=== PATIENT | male | born 1950 | race Caucasian/White ===

== ENCOUNTER 2023-07-17 15:04 | Oncology outpatient (recurring) (ONCR) | payer OTHER, SELFPAY | END 2023-08-01 23:59 | disposition home or self-care (01) | PROVIDERS: Visit Provider Internal Medicine Medical Oncology | DX: C91.10 Chronic lymphocytic leukemia of B-cell type not having achieved remission (principal); Z79.899 Other long term (current) drug therapy | CPT/HCPCS: 99204 ==

== ENCOUNTER → 2023-08-21 13:21 | Outpatient (BNVA) | payer OTHER, SELFPAY | PROVIDERS: Referring Provider Emergency Medicine Emergency Medical Services; Visit Provider Internal Medicine | DX: R07.9 Chest pain, unspecified (principal); I25.10 Atherosclerotic heart disease of native coronary artery without angina pectoris; R94.31 Abnormal electrocardiogram [ECG] [EKG] | CPT/HCPCS: 93005; 99204 ==

== ENCOUNTER 2023-09-05 10:43 | Outpatient (CLI) | payer OTHER, SELFPAY ==
--- NOTE | 2023-09-05 11:00 | USCV_ITS ---
Lyndon Jones Age: 73 Gender: M : 1950 Exam Date: 09/05/2023 10:59 Ordering Phys: Dion Mercado M.D ([email or web address]) Technologist: GRUPO [place] [facility] [place]: SHORTNESS OF BREATH/CHEST PAIN BP: 116 / 68 HR: 74 Rhythm: Sinus Technical Quality: Adequate MEASUREMENTS (Male / Female) Normal Values 2D ECHO LVOT Diameter 2.0 cm LV Ejection Fraction MOD 2C 60.3 % LV Ejection Fraction 2C AL 65.2 % LA Diameter 3.9 cm LA Width 4.4 cm LA Height 5.1 cm RA Width 3.8 cm RA Height 5.0 cm Aorta at Sinotubular Diameter 2.8 cm IVC Diameter 1.6 cm M-MODE Aortic Annulus Diameter 3.3 cm LA Ao Ratio MM 1.1 MV E Point Septal Separation 0.6 cm DOPPLER AV Peak Velocity 132.0 cm/s LVOT Peak Velocity 119.0 cm/s AV Area Cont Eq vti 3.8 cm squared AV Area Cont Eq pk 3.0 cm squared MV Peak Velocity 104.0 cm/s MV Area PHT 3.2 cm squared Mitral E to A Ratio 0.9 MV E' Velocity 46.0 cm/s Mitral E to MV E' Ratio 8.8 Mitral E to LV E' Lateral Ratio 7.2 Mitral E to LV E' Septal Ratio 11.2 TR Peak Velocity 111.4 cm/s TR Peak Gradient 5.0 mmHg TR Mean Velocity 97.8 cm/s TR Mean Gradient 3.9 mmHg TR Velocity Time Integral 33.4 cm TV Peak E Velocity 59.0 cm/s Right Atrial Pressure 3.0 mmHg Pulmonary Artery Systolic Pressu 8.0 mmHg PV Peak Velocity 147.0 cm/s RV Acceleration Time 0.1 s RV Ejection Time 0.3 s RV AcT/ET 0.5 FINDINGS Left Ventricle Left ventricle is normal in size. LV systolic function is normal with EF of 55 to 60%. No regional wall motion abnormalities are seen. Grade 1 disatolic dysfunction Right Ventricle Normal in size and function Right Atrium Normal in size Left Atrium Dilated Mitral Valve Structurally normal mitral valve. Trace mitral regurgitation. Aortic Valve Structurally normal aortic valve. No significant stenosis or regurgitation. Tricuspid Valve Mild tricuspid regurgitation. Insufficient TR jet to calculate RVSP Pulmonic Valve Trace pulmonic regurgitation Trace pulmonic regurgitation Trace pulmonic regurgitation Pericardium Normal Aorta Normal in size IVC Appears to be normal CONCLUSIONS LV systolic function is normal with EF of 55 to 60% Grade 1 diastolic dysfunction. Trace mitral regurgitation Mild tricuspid regurgitation Trace pulmonic regurgitation No comparison studies are available Dion Mercado MD (Electronically Signed) Final Date: 07 September 2023 16:10 S
== END 2023-09-05 10:44 | disposition home or self-care (01) ==
LOC: RAD 10:43
PROVIDERS: PCP Family Medicine; Visit Provider Internal Medicine
DX: R07.9 Chest pain, unspecified (principal); R06.02 Shortness of breath; I07.1 Rheumatic tricuspid insufficiency
CPT/HCPCS: 93306

== ENCOUNTER → 2024-02-20 11:39 | Outpatient (BNVA) | payer OTHER, SELFPAY | PROVIDERS: PCP Family Medicine; Visit Provider Internal Medicine Cardiovascular Disease | DX: I25.10 Atherosclerotic heart disease of native coronary artery without angina pectoris (principal); E78.5 Hyperlipidemia, unspecified | CPT/HCPCS: 99213 ==

== ENCOUNTER 2024-09-09 08:27 | Oncology outpatient (recurring) (ONCR) | payer OTHER, SELFPAY ==
[2024-09-09 10:09] LABS: Basophils # 0.1 10^3/uL (0.0-0.1); Basophils % 0.2 %; Eosinophils # 0.2 10^3/uL (0.0-0.8); Eosinophils % 0.3 %; Hematocrit 41.2 % (37-53); Lymphocytes # 61.1 10^3/uL (0.8-4.8); Lymphocytes % 87.7 %; Mean Corpuscular HGB Conc 33.7 g/dL (30-55); Mean Corpuscular Volume 94.9 fl (82-101); Mean Platelet Volume 9.6 fL (7.4-10.4); Monocytes # 4.9 10^3/uL (0.2-0.9); Neutrophils # 3.29 10^3/uL (1.8-7.7); Neutrophils % 4.7 %; Nucleated Red Blood Cells % 0 %; Platelet Count 122 10^3/cmm (157-399); Red Blood Count 4.34 10^6/uL (3.85-5.65)
[2024-09-09 10:18] LABS: Erythrocyte Sedimentation Rate 4 mm/hr (0-10)
[2024-09-09 10:29] LABS: Alanine Aminotransferase 18 U/L (0-41); Albumin Level 4.5 g/dL (3.5-5.2); Alkaline Phosphatase 107 U/L (40-130); Anion Gap 15.5 (5-19); Aspartate Amino Transferase 22 U/L (0-40); Blood Urea Nitrogen 18 mg/dL (8-23); Calcium 9.6 mg/dL (8.5-10.5); Carbon Dioxide 24 mmol/L (22-29); Chloride 103 mmol/L (98-107); Creatinine Clr Calc Pharmacy 111.1073; Globulin 2.3 g/dL (1.3-4.6); Glucose 123 mg/dL (65-115); Lactate Dehydrogenase 161 U/L (135-225); Osmolality Calculated 289 mOsm/kg (285-295); Phosphorus 3.2 mg/dL (2.5-4.5); Potassium 4.5 mmol/L (3.5-5.1); Sodium 138 mmol/L (136-145); Total Bilirubin 0.9 mg/dL (0.15-1.2); Total Protein 6.8 g/dL (6.6-8.7); Uric Acid 5.5 mg/dL (3.4-7.0)
[2024-09-09 10:43] LABS: Immunoglobulin IGG 604 mg/dL (700-1600); Immunoglobulin IGM 42 mg/dL (40-230)
[2024-09-09 10:47] LABS: Immunoglobulin IGA < 50 mg/dL (70-400)
[2024-09-09 10:55] LABS: Slide Review Slide Review Perform
[2024-09-09 11:36] LABS: Reticulocyte % 1.7 % (0.5-2.0)
[2024-09-10 08:49] LABS: PROTEIN, TOTAL 6.6 g/dL (6.1-8.1)
[2024-09-10 13:44] LABS: Leukemia Profile (BBPL) See Report
[2024-09-11 11:54] LABS: ABNORMAL PROTEIN BAND 1 0.1 g/dL (NONE DETECTED); ALBUMIN 4.3 g/dL (3.8-4.8); ALPHA 1 GLOBULIN 0.3 g/dL (0.2-0.3); ALPHA 2 GLOBULIN 0.8 g/dL (0.5-0.9); BETA 1 GLOBULIN 0.4 g/dL (0.4-0.6); BETA 2 GLOBULIN 0.3 g/dL (0.2-0.5); GAMMA GLOBULIN 0.6 g/dL (0.8-1.7)
[2024-09-17 15:10] LABS: CLL Prognostic Panel (BBPL) See Report
== END 2024-10-02 23:59 | disposition home or self-care (01) ==
PROVIDERS: PCP Family Medicine; Visit Provider Internal Medicine
DX: C91.10 Chronic lymphocytic leukemia of B-cell type not having achieved remission (principal); I25.10 Atherosclerotic heart disease of native coronary artery without angina pectoris
CPT/HCPCS: 36415; 80053; 81263; 82232; 82784; 83010; 83615; 84100; 84155; 84165; 84550; 85025; 85045; 85651; 86334; 86880; 88184; 88185; 88264; 88271; 88367; 88374; 99213

== ENCOUNTER 2024-12-09 09:54 | Oncology outpatient (recurring) (ONCR) | payer OTHER, SELFPAY ==
[2024-12-09 10:30] LABS: Hematocrit 40.9 % (37-53); Mean Corpuscular HGB Conc 32.5 g/dL (30-55); Mean Corpuscular Volume 98.3 fl (82-101); Mean Platelet Volume 9.7 fL (7.4-10.4); Platelet Count 132 10^3/cmm (157-399); Red Blood Count 4.16 10^6/uL (3.85-5.65); Red Cell Distribution Width 14.9 % (12.1-15.1)
[2024-12-09 10:34] LABS: Erythrocyte Sedimentation Rate 3 mm/hr (0-10)
[2024-12-09 10:38] LABS: Reticulocyte % 1.7 % (0.5-2.0)
[2024-12-09 10:49] LABS: Alanine Aminotransferase 14 U/L (0-41); Albumin Level 4.5 g/dL (3.5-5.2); Alkaline Phosphatase 118 U/L (40-130); Anion Gap 18.3 (5-19); Aspartate Amino Transferase 19 U/L (0-40); Blood Urea Nitrogen 21 mg/dL (8-23); Calcium 9.3 mg/dL (8.5-10.5); Carbon Dioxide 22 mmol/L (22-29); Chloride 103 mmol/L (98-107); Globulin 2.1 g/dL (1.3-4.6); Glucose 179 mg/dL (65-115); Lactate Dehydrogenase 160 U/L (135-225); Osmolality Calculated 295 mOsm/kg (285-295); Phosphorus 2.3 mg/dL (2.5-4.5); Potassium 4.3 mmol/L (3.5-5.1); Sodium 139 mmol/L (136-145); Total Bilirubin 0.9 mg/dL (0.15-1.2); Total Protein 6.6 g/dL (6.6-8.7); Uric Acid 5.4 mg/dL (3.4-7.0)
[2024-12-09 11:12] LABS: White Blood Count 90.86 10^3/uL (3.29-11.43)
[2024-12-09 11:15] LABS: Slide Review Slide Review Perform
[2024-12-09 11:16] LABS: Absolute Eosinophils 1.8 10^3/cmm (0.0-0.7); Absolute Neutrophil 4.5 10^3/cmm (1.4-6.5); Absolute Segmented Neutrophil 4.5 10/cmm (1.6-7.1); Eosinophils 2 %; Lymphocytes 84 %; Lymphocytes Absolute 84.5 10^3/cmm (1.2-3.4); Platelet Estimate Normal (Normal); Segmented Neutrophils 5 %; Total Cells Counted 100 (0-100)
[2024-12-09 11:18] LABS: Immunoglobulin IGG 579 mg/dL (700-1600); Immunoglobulin IGM 38 mg/dL (40-230)
[2024-12-09 11:20] LABS: Immunoglobulin IGA < 50 mg/dL (70-400)
[2024-12-10 08:06] LABS: PROTEIN, TOTAL 6.5 g/dL (6.1-8.1)
[2024-12-10 20:59] LABS: ABNORMAL PROTEIN BAND 1 0.1 g/dL (NONE DETECTED); ALBUMIN 4.2 g/dL (3.8-4.8); ALPHA 1 GLOBULIN 0.3 g/dL (0.2-0.3); ALPHA 2 GLOBULIN 0.9 g/dL (0.5-0.9); BETA 1 GLOBULIN 0.4 g/dL (0.4-0.6); BETA 2 GLOBULIN 0.3 g/dL (0.2-0.5); GAMMA GLOBULIN 0.5 g/dL (0.8-1.7)
== END 2024-12-30 23:59 | disposition home or self-care (01) ==
PROVIDERS: PCP Family Medicine; Visit Provider Internal Medicine
DX: C91.10 Chronic lymphocytic leukemia of B-cell type not having achieved remission (principal); I25.10 Atherosclerotic heart disease of native coronary artery without angina pectoris; M1A.9XX0 Chronic gout, unspecified, without tophus (tophi); I11.0 Hypertensive heart disease with heart failure; E78.5 Hyperlipidemia, unspecified; G31.89 Other specified degenerative diseases of nervous system; M54.9 Dorsalgia, unspecified; G89.4 Chronic pain syndrome
CPT/HCPCS: 36415; 80053; 82784; 83010; 83615; 84100; 84155; 84165; 84550; 85007; 85025; 85045; 85651; 86334; 86880; 99213

== ENCOUNTER → 2025-01-04 08:27 | Outpatient (BNVA) | payer OTHER, SELFPAY | PROVIDERS: PCP Family Medicine; Referring Provider Dermatology; Visit Provider Nurse Practitioner Family | DX: L23.89 Allergic contact dermatitis due to other agents (principal); L82.1 Other seborrheic keratosis; L81.4 Other melanin hyperpigmentation; Z08 Encounter for follow-up examination after completed treatment for malignant neoplasm; Z85.828 Personal history of other malignant neoplasm of skin; D48.5 Neoplasm of uncertain behavior of skin; L57.0 Actinic keratosis | CPT/HCPCS: 11102; 17000; 69100; 99204 ==

== ENCOUNTER → 2025-01-20 14:41 | Outpatient (BNVA) | payer OTHER, SELFPAY | PROVIDERS: PCP Family Medicine; Visit Provider Dermatology | DX: D04.22 Carcinoma in situ of skin of left ear and external auricular canal (principal); C44.1192 Basal cell carcinoma of skin of left lower eyelid, including canthus; C44.612 Basal cell carcinoma of skin of right upper limb, including shoulder; D48.5 Neoplasm of uncertain behavior of skin | CPT/HCPCS: 11102; 11603; 12034; 99214 ==

== ENCOUNTER 2025-02-10 12:35 | Oncology outpatient (recurring) (ONCR) | payer OTHER, SELFPAY ==
[2025-02-10 13:04] LABS: Reticulocyte % 1.7 % (0.5-2.0)
[2025-02-10 13:22] LABS: Alanine Aminotransferase 12 U/L (0-41); Albumin Level 4.4 g/dL (3.5-5.2); Alkaline Phosphatase 126 U/L (40-130); Anion Gap 14.5 (5-19); Aspartate Amino Transferase 19 U/L (0-40); Blood Urea Nitrogen 15 mg/dL (8-23); Calcium 9.1 mg/dL (8.5-10.5); Carbon Dioxide 22 mmol/L (22-29); Chloride 103 mmol/L (98-107); Globulin 2.1 g/dL (1.3-4.6); Glucose 117 mg/dL (65-115); Lactate Dehydrogenase 181 U/L (135-225); Osmolality Calculated 282 mOsm/kg (285-295); Potassium 4.5 mmol/L (3.5-5.1); Sodium 135 mmol/L (136-145); Total Bilirubin 0.7 mg/dL (0.15-1.2); Total Protein 6.5 g/dL (6.6-8.7); Uric Acid 4.8 mg/dL (3.4-7.0)
[2025-02-10 13:34] LABS: Hematocrit 40.2 % (37-53); Mean Corpuscular HGB Conc 32.8 g/dL (30-55); Mean Corpuscular Hemoglobin 32.2 pg (27-33); Mean Platelet Volume 10.1 fL (7.4-10.4); Platelet Count 132 10^3/cmm (157-399); Red Cell Distribution Width 14.7 % (12.1-15.1)
[2025-02-10 14:13] LABS: White Blood Count 115.31 10^3/uL (3.29-11.43)
[2025-02-10 14:14] LABS: Erythrocyte Sedimentation Rate 3 mm/hr (0-10); Slide Review Slide Review Perform
[2025-02-10 14:16] LABS: Absolute Eosinophils 1.2 10^3/cmm (0.0-0.7); Absolute Segmented Neutrophil 1.2 10/cmm (1.6-7.1); Eosinophils 1 %; Lymphocytes 88 %; Monocytes Absolute 1.2 10^3/cmm (0.1-0.6); Segmented Neutrophils 1 %; Total Cells Counted 100 (0-100)
[2025-02-10 14:17] LABS: Absolute Neutrophil 1.2 10^3/cmm (1.4-6.5); Lymphocytes Absolute 111.9 10^3/cmm (1.2-3.4); Platelet Estimate Normal (Normal); Smudge Cells 2+
[2025-02-10 15:25] LABS: Immunoglobulin IGA < 50 mg/dL (70-400); Immunoglobulin IGG 553 mg/dL (700-1600); Immunoglobulin IGM 26 mg/dL (40-230); Phosphorus 2.5 mg/dL (2.5-4.5)
[2025-02-10 16:33] LABS: Folate Level > 20.0 ng/mL (4.5-32.2)
[2025-02-10 17:10] LABS: Ferritin 120 ng/mL (30-400); Iron 89 ug/dL (59-158); Percent Saturation 31.3 % (20-50); Total Iron Binding Capacity 284 mcg/dl; Unsaturated Iron Binding 195 ug/dL (112-347)
[2025-02-10 17:24] LABS: Vitamin B12 1495 pg/mL (232-1245)
[2025-02-11 09:01] LABS: PROTEIN, TOTAL 6.5 g/dL (6.1-8.1)
[2025-02-12 19:55] LABS: ABNORMAL PROTEIN BAND 1 0.1 g/dL (NONE DETECTED); ALBUMIN 4.3 g/dL (3.8-4.8); ALPHA 1 GLOBULIN 0.3 g/dL (0.2-0.3); ALPHA 2 GLOBULIN 0.9 g/dL (0.5-0.9); BETA 1 GLOBULIN 0.4 g/dL (0.4-0.6); BETA 2 GLOBULIN 0.3 g/dL (0.2-0.5); GAMMA GLOBULIN 0.5 g/dL (0.8-1.7)
[2025-02-13 21:29] LABS: Immunofixation Serum Normal pattern.
== END 2025-03-01 23:59 | disposition home or self-care (01) ==
PROVIDERS: PCP Family Medicine; Visit Provider Internal Medicine
DX: C91.10 Chronic lymphocytic leukemia of B-cell type not having achieved remission (principal); I25.10 Atherosclerotic heart disease of native coronary artery without angina pectoris; M1A.9XX0 Chronic gout, unspecified, without tophus (tophi); I11.0 Hypertensive heart disease with heart failure; E78.5 Hyperlipidemia, unspecified; G31.89 Other specified degenerative diseases of nervous system; M54.9 Dorsalgia, unspecified; G89.4 Chronic pain syndrome; R03.0 Elevated blood-pressure reading, without diagnosis of hypertension
CPT/HCPCS: 36415; 80053; 82607; 82728; 82746; 82784; 83010; 83540; 83550; 83615; 84100; 84155; 84165; 84550; 85007; 85025; 85045; 85651; 86334; 86880; 99213

== ENCOUNTER → 2025-03-10 10:39 | Outpatient (BNVA) | payer OTHER, SELFPAY | PROVIDERS: PCP Family Medicine; Visit Provider Nurse Practitioner Family | DX: L82.1 Other seborrheic keratosis (principal); L81.4 Other melanin hyperpigmentation; D18.01 Hemangioma of skin and subcutaneous tissue; Z08 Encounter for follow-up examination after completed treatment for malignant neoplasm; Z85.828 Personal history of other malignant neoplasm of skin; D48.5 Neoplasm of uncertain behavior of skin | CPT/HCPCS: 11102; 99213 ==

== ENCOUNTER 2025-03-31 12:15 | Oncology outpatient (recurring) (ONCR) | payer OTHER, SELFPAY ==
[2025-03-11 08:45] LABS: Hematocrit 39.1 % (37-53); Hemoglobin 12.20 g/dL (11.27-16.99); Mean Corpuscular HGB Conc 31.2 g/dL (30-55); Mean Corpuscular Hemoglobin 30.8 pg (27-33); Mean Corpuscular Volume 98.7 fl (82-101); Nucleated Red Blood Cells % 0 %; Platelet Count 283 10^3/cmm (157-399); Red Blood Count 3.96 10^6/uL (3.85-5.65)
[2025-03-11 09:04] LABS: Alanine Aminotransferase 23 U/L (0-41); Albumin Level 3.9 g/dL (3.5-5.2); Alkaline Phosphatase 119 U/L (40-130); Anion Gap 16.0 (5-19); Aspartate Amino Transferase 27 U/L (0-40); Blood Urea Nitrogen 14 mg/dL (8-23); Calcium 9.2 mg/dL (8.5-10.5); Carbon Dioxide 25 mmol/L (22-29); Chloride 101 mmol/L (98-107); Creatinine Clr Calc Pharmacy 92.1696; Globulin 2.7 g/dL (1.3-4.6); Glucose 100 mg/dL (65-115); Magnesium 2.5 mg/dL (1.7-2.3); Osmolality Calculated 285 mOsm/kg (285-295); Potassium 5.0 mmol/L (3.5-5.1); Sodium 137 mmol/L (136-145); Total Protein 6.6 g/dL (6.6-8.7); Uric Acid 5.0 mg/dL (3.4-7.0)
[2025-03-11 09:08] LABS: White Blood Count 134.55 10^3/uL (3.29-11.43)
[2025-03-11 09:09] LABS: Slide Review Slide Review Perform
[2025-03-16 12:01] LABS: Hematocrit 40.2 % (37-53); Hemoglobin 12.90 g/dL (11.27-16.99); Mean Corpuscular HGB Conc 32.1 g/dL (30-55); Mean Corpuscular Hemoglobin 31.9 pg (27-33); Mean Corpuscular Volume 99.5 fl (82-101); Nucleated Red Blood Cells % 0 %; Platelet Count 180 10^3/cmm (157-399); Red Blood Count 4.04 10^6/uL (3.85-5.65)
[2025-03-16 12:18] LABS: White Blood Count 122.79 10^3/uL (3.29-11.43)
[2025-03-16 12:19] LABS: Slide Review Slide Review Perform
[2025-03-16 12:22] LABS: Alanine Aminotransferase 18 U/L (0-41); Albumin Level 4.1 g/dL (3.5-5.2); Alkaline Phosphatase 119 U/L (40-130); Aspartate Amino Transferase 25 U/L (0-40); Blood Urea Nitrogen 11 mg/dL (8-23); Calcium 9.3 mg/dL (8.5-10.5); Carbon Dioxide 23 mmol/L (22-29); Chloride 101 mmol/L (98-107); Creatinine Clr Calc Pharmacy 92.3518; Globulin 2.5 g/dL (1.3-4.6); Glucose 94 mg/dL (65-115); Lipase 5 U/L (13-60); Magnesium 2.4 mg/dL (1.7-2.3); Osmolality Calculated 281 mOsm/kg (285-295); Sodium 136 mmol/L (136-145); Total Protein 6.6 g/dL (6.6-8.7); Uric Acid 5.0 mg/dL (3.4-7.0)
[2025-03-16 12:24] LABS: Anion Gap 17.3 (5-19); Potassium 5.3 mmol/L (3.5-5.1)
[2025-03-16 14:50] LABS: KAPPA LIGHT CHAIN, FREE, SERUM 11.8 mg/L (3.3-19.4); KAPPA/LAMBDA LIGHT CHAINS FREE 0.23 (0.26-1.65); LAMBDA LIGHT CHAIN, FREE, SERU 52.4 mg/L (5.7-26.3)
[2025-03-24 09:43] LABS: Hematocrit 37.9 % (37-53); Hemoglobin 11.70 g/dL (11.27-16.99); Mean Corpuscular HGB Conc 30.9 g/dL (30-55); Mean Corpuscular Hemoglobin 31.0 pg (27-33); Mean Corpuscular Volume 100.5 fl (82-101); Nucleated Red Blood Cells % 0 %; Platelet Count 95 10^3/cmm (157-399); Red Blood Count 3.77 10^6/uL (3.85-5.65)
[2025-03-24 09:55] LABS: Alanine Aminotransferase 10 U/L (0-41); Albumin Level 4.1 g/dL (3.5-5.2); Alkaline Phosphatase 115 U/L (40-130); Anion Gap 17.5 (5-19); Aspartate Amino Transferase 16 U/L (0-40); Blood Urea Nitrogen 12 mg/dL (8-23); Calcium 9.4 mg/dL (8.5-10.5); Carbon Dioxide 24 mmol/L (22-29); Chloride 102 mmol/L (98-107); Creatinine Clr Calc Pharmacy 92.3518; Globulin 2.3 g/dL (1.3-4.6); Glucose 103 mg/dL (65-115); Lipase 7 U/L (13-60); Magnesium 2.2 mg/dL (1.7-2.3); Osmolality Calculated 288 mOsm/kg (285-295); Potassium 4.5 mmol/L (3.5-5.1); Sodium 139 mmol/L (136-145); Total Protein 6.4 g/dL (6.6-8.7); Uric Acid 4.3 mg/dL (3.4-7.0)
[2025-03-24 10:25] LABS: Slide Review Slide Review Perform
[2025-03-24 10:28] LABS: White Blood Count 130.32 10^3/uL (3.29-11.43)
[2025-03-31 12:02] LABS: Hematocrit 39.1 % (37-53); Hemoglobin 12.10 g/dL (11.27-16.99); Mean Corpuscular HGB Conc 30.9 g/dL (30-55); Mean Corpuscular Hemoglobin 31.9 pg (27-33); Mean Corpuscular Volume 103.2 fl (82-101); Nucleated Red Blood Cells % 0 %; Platelet Count 118 10^3/cmm (157-399); Red Blood Count 3.79 10^6/uL (3.85-5.65)
[2025-03-31 12:23] LABS: Alanine Aminotransferase 10 U/L (0-41); Albumin Level 4.2 g/dL (3.5-5.2); Alkaline Phosphatase 122 U/L (40-130); Anion Gap 16.5 (5-19); Aspartate Amino Transferase 16 U/L (0-40); Blood Urea Nitrogen 13 mg/dL (8-23); Calcium 9.3 mg/dL (8.5-10.5); Carbon Dioxide 24 mmol/L (22-29); Chloride 103 mmol/L (98-107); Creatinine Clr Calc Pharmacy 92.1696; Globulin 2.4 g/dL (1.3-4.6); Glucose 165 mg/dL (65-115); Osmolality Calculated 292 mOsm/kg (285-295); Potassium 4.5 mmol/L (3.5-5.1); Sodium 139 mmol/L (136-145); Total Protein 6.6 g/dL (6.6-8.7); Uric Acid 4.4 mg/dL (3.4-7.0)
[2025-03-31 12:49] LABS: White Blood Count 159.14 10^3/uL (3.29-11.43)
[2025-03-31 12:50] LABS: Slide Review Slide Review Perform
== END 2025-04-01 23:59 | disposition home or self-care (01) ==
PROVIDERS: Nurse Practitioner; PCP Family Medicine; Visit Provider Internal Medicine Medical Oncology
DX: Z53.9 Procedure and treatment not carried out, unspecified reason; C91.10 Chronic lymphocytic leukemia of B-cell type not having achieved remission; I25.10 Atherosclerotic heart disease of native coronary artery without angina pectoris; Z79.899 Other long term (current) drug therapy; L29.9 Pruritus, unspecified
CPT/HCPCS: 36415; 80053; 82232; 82784; 83010; 83615; 83690; 83735; 83883; 84100; 84550; 85025; 99213; 99214; 99215

== ENCOUNTER → 2025-04-02 09:18 | Outpatient (BNVA) | payer OTHER, SELFPAY | PROVIDERS: PCP Family Medicine; Visit Provider Dermatology | DX: C44.92 Squamous cell carcinoma of skin, unspecified (principal); D04.22 Carcinoma in situ of skin of left ear and external auricular canal; C44.1192 Basal cell carcinoma of skin of left lower eyelid, including canthus; L82.1 Other seborrheic keratosis; L81.4 Other melanin hyperpigmentation; L81.7 Pigmented purpuric dermatosis; Z08 Encounter for follow-up examination after completed treatment for malignant neoplasm; Z85.828 Personal history of other malignant neoplasm of skin; C44.41 Basal cell carcinoma of skin of scalp and neck; L30.9 Dermatitis, unspecified; L57.0 Actinic keratosis | CPT/HCPCS: 11102; 17000; 17272; 99214 ==

== ENCOUNTER 2025-04-29 08:19 | Oncology outpatient (recurring) (ONCR) | payer OTHER, SELFPAY ==
[2025-04-06 10:52] LABS: Hematocrit 38.1 % (37-53); Hemoglobin 11.90 g/dL (11.27-16.99); Mean Corpuscular HGB Conc 31.2 g/dL (30-55); Mean Corpuscular Hemoglobin 31.6 pg (27-33); Mean Corpuscular Volume 101.1 fl (82-101); Nucleated Red Blood Cells % 0 %; Platelet Count 172 10^3/cmm (157-399); Red Blood Count 3.77 10^6/uL (3.85-5.65)
[2025-04-06 11:06] LABS: Alanine Aminotransferase 8 U/L (0-41); Albumin Level 4.1 g/dL (3.5-5.2); Alkaline Phosphatase 120 U/L (40-130); Anion Gap 15.1 (5-19); Aspartate Amino Transferase 17 U/L (0-40); Blood Urea Nitrogen 11 mg/dL (8-23); Calcium 9.4 mg/dL (8.5-10.5); Carbon Dioxide 24 mmol/L (22-29); Chloride 104 mmol/L (98-107); Globulin 2.6 g/dL (1.3-4.6); Glucose 124 mg/dL (65-115); Osmolality Calculated 289 mOsm/kg (285-295); Potassium 4.1 mmol/L (3.5-5.1); Sodium 139 mmol/L (136-145); Total Protein 6.7 g/dL (6.6-8.7); Uric Acid 5.4 mg/dL (3.4-7.0)
[2025-04-06 11:42] LABS: Slide Review Slide Review Perform
[2025-04-06 11:44] LABS: White Blood Count 151.62 10^3/uL (3.29-11.43)
[2025-04-21 14:48] LABS: Hematocrit 37.2 % (37-53); Hemoglobin 11.80 g/dL (11.27-16.99); Mean Corpuscular HGB Conc 31.7 g/dL (30-55); Mean Corpuscular Hemoglobin 31.9 pg (27-33); Mean Corpuscular Volume 100.5 fl (82-101); Nucleated Red Blood Cells % 0 %; Platelet Count 197 10^3/cmm (157-399); Red Blood Count 3.70 10^6/uL (3.85-5.65)
[2025-04-21 15:03] LABS: Alanine Aminotransferase 10 U/L (0-41); Albumin Level 4.2 g/dL (3.5-5.2); Alkaline Phosphatase 123 U/L (40-130); Anion Gap 15.3 (5-19); Aspartate Amino Transferase 16 U/L (0-40); Blood Urea Nitrogen 14 mg/dL (8-23); Calcium 9.4 mg/dL (8.5-10.5); Carbon Dioxide 23 mmol/L (22-29); Chloride 104 mmol/L (98-107); Creatinine Clr Calc Pharmacy 105.1244; Globulin 2.8 g/dL (1.3-4.6); Glucose 104 mg/dL (65-115); Magnesium 2.1 mg/dL (1.7-2.3); Osmolality Calculated 287 mOsm/kg (285-295); Potassium 4.3 mmol/L (3.5-5.1); Sodium 138 mmol/L (136-145); Total Protein 7.0 g/dL (6.6-8.7); Uric Acid 5.2 mg/dL (3.4-7.0)
[2025-04-21 15:05] LABS: White Blood Count 147.24 10^3/uL (3.29-11.43)
[2025-04-21 15:07] LABS: Slide Review Slide Review Perform
--- NOTE | 2025-04-29 08:51 | ECG_ITS ---
[employer] Test Date: 2025-04-29 Pat Name: Lyndon Jones Department: Room: Gender: Male [employer] Officer: : 1950 Requested By: Moriah Valerio Order Number: [id number] Lucas MD: Leighton Churchill M.D. Interpretive Statements Procedure: A total of 0.4 mg of Lexiscan was infused over 20 seconds. The stress phase was continued for a total of 5 minutes. Sestamibi was injected 20 seconds after the Lexiscan infusion. Vital signs and ECG findings: At rest, the blood pressure was 134/77 with a heart rate of 65. During stress the blood pressure was 122/67 with a heart rate of 98 bpm in recovery, blood pressure was 132/68 with a heart rate of 76 bpm. Then resting EKG showed normal sinus rhythm without ST or T wave abnormality. Stress EKG without ischemic changes. Conclusion: 1. Normal EKG response to Lexiscan infusion 2. No Lexiscan induced chest pain or cardiac arrhythmia. 3. Normal blood pressure and heart rate response. 4. Nuclear myocardial perfusion scan pending; see separate report. Electronically Signed On 04-29-2025 14:42:29 CDT by Leighton Churchill M.D. [email or web address]
--- NOTE | 2025-04-29 08:53 | NMCV_ITS ---
NM tiff perf SPECT r/s* [id number] Lyndon Jones Age: 75 Gender: M : 1950 Exam Date: 04/29/2025 09:17 Ordering Phys: Moriah Valerio MD Technologist: SAMIA Henderson Exam Location: [facility] Indications: cp STRESS TEST [facility] IMAGE PROTOCOL Rest/Stress 1 Lexiscan Day Radiopharmaceutical Dose (mCi) Administration Site Administered by Rest: Tc-99m 10.9 IV Jess Walter, FIELD MARKETING COORDINATOR Sestamibi Stress:Tc-99m 32.8 IV Jess Stephengle, FIELD MARKETING COORDINATOR Sestamibi Rest: 29-Apr-2025 60 Discovery 630 Stress: 29-Apr-2025 30 Discovery 630 0.4mg Lexiscan. Images obtained in supine and prone position. SPECT RESULTS Technical Quality: Good Raw Data Analysis: Normal Image Corrections: No attenuation or motion correction applied Summed Stress Score: 10 Summed Rest Score: 6 Summed Difference Score: 4 PERFUSION FINDINGS There is a medium sized area of moderately reduced tracer counts in the inferolateral wall which is predominatly fixed on the resting images compared to the stresss images. Due to normal wall motion in this area, the defect is more likely artifact instead of infarction. FUNCTIONAL RESULTS (calculated via Gated SPECT) Stress Image LV EF (%): 61 Stress EDV (mL):135 TID: 1.07 Stress ESV (mL):52 FUNCTIONAL FINDINGS: There is normal left ventricular systolic function, EF 61%. IMPRESSIONS 1. Myocardial perfusion images with artifact in the inferolateral wall. No ischemia or infarction. 2 Normal left ventricular systolic function, EF 61%. Leighton Churchill MD, FACC (Electronically Signed) Final Date: 29 April 2025 14:26 S
[2025-04-29 10:07] VITALS: BP 132/68; PULSE 75
== END 2025-05-02 23:59 | disposition home or self-care (01) ==
LOC: ONCMED 08:20 → CDL 08:22 → ONCMED 09:01
PROVIDERS: Internal Medicine; PCP Family Medicine; Visit Provider Internal Medicine Medical Oncology
DX: R07.9 Chest pain, unspecified; R93.1 Abnormal findings on diagnostic imaging of heart and coronary circulation; Z53.9 Procedure and treatment not carried out, unspecified reason
CPT/HCPCS: 36415; 78452; 80053; 83615; 83735; 84100; 84550; 85025; 93017; 96374; 99213; 99214; A9500; J2785

== ENCOUNTER 2025-05-18 13:45 | Oncology outpatient (recurring) (ONCR) | payer OTHER, SELFPAY ==
[2025-05-05 13:03] LABS: Alanine Aminotransferase 12 U/L (0-41); Albumin Level 4.4 g/dL (3.5-5.2); Alkaline Phosphatase 117 U/L (40-130); Anion Gap 16.4 (5-19); Aspartate Amino Transferase 18 U/L (0-40); Blood Urea Nitrogen 17 mg/dL (8-23); Calcium 9.5 mg/dL (8.5-10.5); Carbon Dioxide 24 mmol/L (22-29); Chloride 104 mmol/L (98-107); Globulin 2.5 g/dL (1.3-4.6); Glucose 123 mg/dL (65-115); Osmolality Calculated 293 mOsm/kg (285-295); Potassium 4.4 mmol/L (3.5-5.1); Sodium 140 mmol/L (136-145); Total Protein 6.9 g/dL (6.6-8.7)
[2025-05-05 13:04] LABS: Hematocrit 39.4 % (37-53); Hemoglobin 12.20 g/dL (11.27-16.99); Mean Corpuscular HGB Conc 31.0 g/dL (30-55); Mean Corpuscular Hemoglobin 31.0 pg (27-33); Mean Corpuscular Volume 100.3 fl (82-101); Nucleated Red Blood Cells % 0 %; Platelet Count 138 10^3/cmm (157-399); Red Blood Count 3.93 10^6/uL (3.85-5.65)
[2025-05-05 13:34] LABS: Slide Review Slide Review Perform; White Blood Count 159.33 10^3/uL (3.29-11.43)
[2025-05-12 13:36] LABS: Hematocrit 40.3 % (37-53); Hemoglobin 12.30 g/dL (11.27-16.99); Mean Corpuscular HGB Conc 30.5 g/dL (30-55); Mean Corpuscular Hemoglobin 31.1 pg (27-33); Mean Corpuscular Volume 101.8 fl (82-101); Nucleated Red Blood Cells % 0 %; Platelet Count 137 10^3/cmm (157-399); Red Blood Count 3.96 10^6/uL (3.85-5.65)
[2025-05-12 13:53] LABS: White Blood Count 180.51 10^3/uL (3.29-11.43)
[2025-05-12 13:54] LABS: Slide Review Slide Review Perform
[2025-05-12 13:58] LABS: Alanine Aminotransferase 12 U/L (0-41); Albumin Level 4.5 g/dL (3.5-5.2); Alkaline Phosphatase 117 U/L (40-130); Anion Gap 14.4 (5-19); Aspartate Amino Transferase 21 U/L (0-40); Blood Urea Nitrogen 10 mg/dL (8-23); Calcium 9.6 mg/dL (8.5-10.5); Carbon Dioxide 25 mmol/L (22-29); Chloride 103 mmol/L (98-107); Creatinine Clr Calc Pharmacy 84.4271; Globulin 2.4 g/dL (1.3-4.6); Glucose 110 mg/dL (65-115); Magnesium 2.1 mg/dL (1.7-2.3); Osmolality Calculated 286 mOsm/kg (285-295); Potassium 4.4 mmol/L (3.5-5.1); Sodium 138 mmol/L (136-145); Total Protein 6.9 g/dL (6.6-8.7); Uric Acid 4.7 mg/dL (3.4-7.0)
[2025-05-18 13:25] LABS: Hematocrit 37.6 % (37-53); Hemoglobin 11.60 g/dL (11.27-16.99); Mean Corpuscular HGB Conc 30.9 g/dL (30-55); Mean Corpuscular Hemoglobin 30.7 pg (27-33); Mean Corpuscular Volume 99.5 fl (82-101); Nucleated Red Blood Cells % 0 %; Platelet Count 131 10^3/cmm (157-399); Red Blood Count 3.78 10^6/uL (3.85-5.65)
[2025-05-18 13:44] LABS: Alanine Aminotransferase 12 U/L (0-41); Albumin Level 4.2 g/dL (3.5-5.2); Alkaline Phosphatase 101 U/L (40-130); Anion Gap 15.1 (5-19); Aspartate Amino Transferase 19 U/L (0-40); Blood Urea Nitrogen 11 mg/dL (8-23); Calcium 9.0 mg/dL (8.5-10.5); Carbon Dioxide 24 mmol/L (22-29); Chloride 103 mmol/L (98-107); Creatinine Clr Calc Pharmacy 105.7383; Globulin 2.3 g/dL (1.3-4.6); Glucose 113 mg/dL (65-115); Osmolality Calculated 286 mOsm/kg (285-295); Potassium 4.1 mmol/L (3.5-5.1); Sodium 138 mmol/L (136-145); Total Protein 6.5 g/dL (6.6-8.7)
[2025-05-18 14:03] LABS: Slide Review Slide Review Perform
[2025-05-18 14:05] LABS: White Blood Count 159.64 10^3/uL (3.29-11.43)
== END 2025-06-01 23:59 | disposition home or self-care (01) ==
PROVIDERS: Internal Medicine; Nurse Practitioner; PCP Family Medicine; Visit Provider Internal Medicine Medical Oncology
DX: Z53.9 Procedure and treatment not carried out, unspecified reason; C91.10 Chronic lymphocytic leukemia of B-cell type not having achieved remission; K12.2 Cellulitis and abscess of mouth; I25.10 Atherosclerotic heart disease of native coronary artery without angina pectoris; L98.9 Disorder of the skin and subcutaneous tissue, unspecified; Z79.899 Other long term (current) drug therapy
CPT/HCPCS: 36415; 80053; 83615; 83735; 84100; 84550; 85025; 99214

== ENCOUNTER 2025-06-17 15:32 | Outpatient (CLI) | payer OTHER, SELFPAY ==
--- NOTE | 2025-06-17 15:35 | CTR_ITS ---
PROCEDURE INFORMATION: Exam: CT Neck With Contrast Exam date and time: 06/17/2025 3:47 PM Age: 75 years old Clinical indication: Mass, lump, or swelling in neck; Prior surgery; Surgery date: 6+ months; Right side of neck mass/lump-bb x 2 months, history of cll; Additional info: Localized swelling, mass, and lump, neck TECHNIQUE: Imaging protocol: Computed tomography of the neck with contrast. Radiation optimization: All CT scans at this facility use at least one of these dose optimization techniques: automated exposure control; mA and/or kV adjustment per patient size (includes targeted exams where dose is matched to clinical indication); or iterative reconstruction. Contrast material: OMNI 350; Contrast volume: 100 ml; Contrast route: INTRAVENOUS (IV); COMPARISON: CT neck w con* [id number] 03/03/2025 1:36 AM RADIATION DOSE METRICS: Total DLP (mGy-cm): 211.81 FINDINGS: Salivary glands: Normal. Glands are normal in size. Pharynx: Unremarkable. No significant tonsillar enlargement. Larynx: Unremarkable. Epiglottis is normal. Thyroid: Normal. No enlarged or calcified nodules. Trachea: Visualized trachea is unremarkable. Lungs: Unremarkable as visualized. Lymph nodes: There is an ovoid enlarged right level 2 lymph node contiguous with the sternocleidomastoid muscle, just posterior to the external jugular vein and subjacent to the BB marker that measures approximately 16 x 19 x 10 mm in height, AP, and transverse diameter. See image 60 series 5, image 76 series 8. There is a mildly prominent right jugulodigastric lymph node on image 53 series 4 that has not changed significantly from March 03, 2025. Scattered subcentimeter jugular chain nodes are seen bilaterally, also not appreciably changed from the last exam in terms of quantity or character. There are some mildly prominent but stable level 1 lymph nodes. Bones/joints: Unremarkable. No acute fracture. Soft tissues: The adjacent platysma muscle is slightly thickened compared to contralateral platysma muscle. CT/CT neck w con* [id number] IMPRESSION: Mildly enlarged solitary right level-II lymph node with a associated adjacent thickening of the platysma muscle suggesting inflammation. Clinical correlation will be important.
[2025-06-17] MEDS: iohexol 350 mg/mL 500 mL Btl (per mL) IV (16:07)
== END 2025-06-17 15:33 | disposition home or self-care (01) ==
LOC: RAD 15:32
PROVIDERS: PCP Family Medicine; Visit Provider Otolaryngology
DX: R22.1 Localized swelling, mass and lump, neck (principal)
CPT/HCPCS: 70491

== ENCOUNTER → 2025-06-21 10:19 | Outpatient (BNVA) | payer OTHER, SELFPAY | PROVIDERS: PCP Family Medicine; Visit Provider Dermatology | DX: L82.1 Other seborrheic keratosis (principal); L81.4 Other melanin hyperpigmentation; L27.0 Generalized skin eruption due to drugs and medicaments taken internally; Z08 Encounter for follow-up examination after completed treatment for malignant neoplasm; Z85.828 Personal history of other malignant neoplasm of skin; L57.0 Actinic keratosis | CPT/HCPCS: 17000; 99213 ==

== ENCOUNTER 2025-07-01 13:30 | Oncology outpatient (recurring) (ONCR) | payer OTHER, SELFPAY ==
[2025-06-02 12:47] LABS: Hematocrit 38.6 % (37-53); Hemoglobin 11.50 g/dL (11.27-16.99); Mean Corpuscular HGB Conc 29.8 g/dL (30-55); Mean Corpuscular Hemoglobin 30.3 pg (27-33); Mean Corpuscular Volume 101.8 fl (82-101); Nucleated Red Blood Cells % 0 %; Platelet Count 127 10^3/cmm (157-399); Red Blood Count 3.79 10^6/uL (3.85-5.65)
[2025-06-02 13:07] LABS: Slide Review Slide Review Perform
[2025-06-02 13:09] LABS: White Blood Count 166.33 10^3/uL (3.29-11.43)
[2025-06-02 13:10] LABS: Alanine Aminotransferase 13 U/L (0-41); Albumin Level 4.4 g/dL (3.5-5.2); Alkaline Phosphatase 101 U/L (40-130); Anion Gap 17.3 (5-19); Aspartate Amino Transferase 21 U/L (0-40); Blood Urea Nitrogen 10 mg/dL (8-23); Calcium 9.3 mg/dL (8.5-10.5); Carbon Dioxide 22 mmol/L (22-29); Chloride 103 mmol/L (98-107); Creatinine Clr Calc Pharmacy 95.6278; Globulin 2.3 g/dL (1.3-4.6); Glucose 131 mg/dL (65-115); Magnesium 2.2 mg/dL (1.7-2.3); Osmolality Calculated 287 mOsm/kg (285-295); Potassium 4.3 mmol/L (3.5-5.1); Sodium 138 mmol/L (136-145); Total Protein 6.7 g/dL (6.6-8.7); Uric Acid 5.1 mg/dL (3.4-7.0)
[2025-06-23 12:35] LABS: Hematocrit 40.0 % (37-53); Hemoglobin 12.60 g/dL (11.27-16.99); Mean Corpuscular HGB Conc 31.5 g/dL (30-55); Mean Corpuscular Hemoglobin 30.4 pg (27-33); Mean Corpuscular Volume 96.4 fl (82-101); Nucleated Red Blood Cells % 0 %; Platelet Count 134 10^3/cmm (157-399); Red Blood Count 4.15 10^6/uL (3.85-5.65)
[2025-06-23 13:03] LABS: Alanine Aminotransferase 12 U/L (0-41); Albumin Level 4.5 g/dL (3.5-5.2); Alkaline Phosphatase 100 U/L (40-130); Anion Gap 17.2 (5-19); Aspartate Amino Transferase 19 U/L (0-40); Blood Urea Nitrogen 14 mg/dL (8-23); Calcium 9.1 mg/dL (8.5-10.5); Carbon Dioxide 22 mmol/L (22-29); Chloride 102 mmol/L (98-107); Creatinine Clr Calc Pharmacy 85.5736; Ferritin 90 ng/mL (30-400); Globulin 2.4 g/dL (1.3-4.6); Glucose 118 mg/dL (65-115); Iron 89 ug/dL (59-158); Osmolality Calculated 286 mOsm/kg (285-295); Potassium 4.2 mmol/L (3.5-5.1); Sodium 137 mmol/L (136-145); Total Iron Binding Capacity 309 mcg/dl; Total Protein 6.9 g/dL (6.6-8.7); Unsaturated Iron Binding 220 ug/dL (112-347)
[2025-06-23 13:18] LABS: Vitamin B12 1904 pg/mL (232-1245)
[2025-06-23 13:35] LABS: White Blood Count 132.63 10^3/uL (3.29-11.43)
[2025-06-23 13:39] LABS: Slide Review Slide Review Perform
[2025-07-01 13:25] LABS: Hematocrit 41.7 % (37-53); Hemoglobin 13.00 g/dL (11.27-16.99); Mean Corpuscular HGB Conc 31.2 g/dL (30-55); Mean Corpuscular Hemoglobin 30.5 pg (27-33); Mean Corpuscular Volume 97.9 fl (82-101); Nucleated Red Blood Cells % 0 %; Platelet Count 152 10^3/cmm (157-399); Red Blood Count 4.26 10^6/uL (3.85-5.65)
[2025-07-01 13:42] LABS: Alanine Aminotransferase 11 U/L (0-41); Albumin Level 4.8 g/dL (3.5-5.2); Alkaline Phosphatase 112 U/L (40-130); Aspartate Amino Transferase 25 U/L (0-40); Blood Urea Nitrogen 16 mg/dL (8-23); Calcium 9.7 mg/dL (8.5-10.5); Carbon Dioxide 23 mmol/L (22-29); Chloride 103 mmol/L (98-107); Creatinine Clr Calc Pharmacy 106.9670; Globulin 2.2 g/dL (1.3-4.6); Glucose 119 mg/dL (65-115); Osmolality Calculated 292 mOsm/kg (285-295); Sodium 140 mmol/L (136-145); Total Protein 7.0 g/dL (6.6-8.7); Uric Acid 4.9 mg/dL (3.4-7.0)
[2025-07-01 13:47] LABS: Anion Gap 18.3 (5-19); Potassium 4.3 mmol/L (3.5-5.1)
[2025-07-01 14:34] LABS: Slide Review Slide Review Perform
[2025-07-01 14:54] LABS: White Blood Count 145.66 10^3/uL (3.29-11.43)
== END 2025-07-02 23:59 | disposition home or self-care (01) ==
PROVIDERS: Internal Medicine; PCP Family Medicine; Visit Provider Internal Medicine Medical Oncology
DX: C91.10 Chronic lymphocytic leukemia of B-cell type not having achieved remission; Z53.9 Procedure and treatment not carried out, unspecified reason
CPT/HCPCS: 36415; 80053; 82607; 82728; 82746; 83540; 83550; 83615; 83735; 84100; 84550; 85025; 99214

== ENCOUNTER 2025-07-20 12:00 | Oncology outpatient (recurring) (ONCR) | payer OTHER, SELFPAY ==
[2025-07-06 12:32] LABS: Hematocrit 38.5 % (37-53); Hemoglobin 12.10 g/dL (11.27-16.99); Mean Corpuscular HGB Conc 31.4 g/dL (30-55); Mean Corpuscular Hemoglobin 30.7 pg (27-33); Mean Corpuscular Volume 97.7 fl (82-101); Nucleated Red Blood Cells % 0 %; Platelet Count 148 10^3/cmm (157-399); Red Blood Count 3.94 10^6/uL (3.85-5.65)
[2025-07-06 12:46] LABS: Alanine Aminotransferase 12 U/L (0-41); Albumin Level 4.2 g/dL (3.5-5.2); Alkaline Phosphatase 91 U/L (40-130); Anion Gap 17.0 (5-19); Aspartate Amino Transferase 21 U/L (0-40); Blood Urea Nitrogen 13 mg/dL (8-23); Calcium 9.0 mg/dL (8.5-10.5); Carbon Dioxide 22 mmol/L (22-29); Chloride 102 mmol/L (98-107); Creatinine Clr Calc Pharmacy 95.6278; Globulin 2.2 g/dL (1.3-4.6); Glucose 126 mg/dL (65-115); Osmolality Calculated 286 mOsm/kg (285-295); Potassium 4.0 mmol/L (3.5-5.1); Sodium 137 mmol/L (136-145); Total Protein 6.4 g/dL (6.6-8.7)
[2025-07-06 12:49] LABS: Slide Review Slide Review Perform; White Blood Count 126.75 10^3/uL (3.29-11.43)
[2025-07-07 07:44] LABS: PROTEIN, TOTAL 6.1 g/dL (6.1-8.1)
[2025-07-07 13:50] LABS: KAPPA LIGHT CHAIN, FREE, SERUM 9.8 mg/L (3.3-19.4); KAPPA/LAMBDA LIGHT CHAINS FREE 0.34 (0.26-1.65); LAMBDA LIGHT CHAIN, FREE, SERU 28.5 mg/L (5.7-26.3)
[2025-07-08 10:10] LABS: ALPHA 1 GLOBULIN 0.3 g/dL (0.2-0.3); ALPHA 2 GLOBULIN 0.7 g/dL (0.5-0.9); BETA 1 GLOBULIN 0.3 g/dL (0.4-0.6); BETA 2 GLOBULIN 0.3 g/dL (0.2-0.5)
[2025-07-20 12:11] LABS: Hematocrit 38.8 % (37-53); Hemoglobin 12.10 g/dL (11.27-16.99); Mean Corpuscular HGB Conc 31.2 g/dL (30-55); Mean Corpuscular Hemoglobin 30.0 pg (27-33); Mean Corpuscular Volume 96.3 fl (82-101); Nucleated Red Blood Cells % 0 %; Platelet Count 147 10^3/cmm (157-399); Red Blood Count 4.03 10^6/uL (3.85-5.65)
[2025-07-20 12:33] LABS: Alanine Aminotransferase 12 U/L (0-41); Albumin Level 4.3 g/dL (3.5-5.2); Alkaline Phosphatase 91 U/L (40-130); Anion Gap 10.8 (5-19); Aspartate Amino Transferase 18 U/L (0-40); Blood Urea Nitrogen 20 mg/dL (8-23); Calcium 9.2 mg/dL (8.5-10.5); Carbon Dioxide 26 mmol/L (22-29); Chloride 106 mmol/L (98-107); Creatinine Clr Calc Pharmacy 95.6278; Globulin 2.3 g/dL (1.3-4.6); Glucose 128 mg/dL (65-115); Osmolality Calculated 292 mOsm/kg (285-295); Potassium 3.8 mmol/L (3.5-5.1); Sodium 139 mmol/L (136-145); Total Protein 6.6 g/dL (6.6-8.7)
[2025-07-20 12:44] LABS: Slide Review Slide Review Perform
[2025-07-20 12:45] LABS: White Blood Count 123.11 10^3/uL (3.29-11.43)
== END 2025-08-01 23:59 | disposition home or self-care (01) ==
PROVIDERS: Nurse Practitioner; PCP Family Medicine; Visit Provider Internal Medicine Medical Oncology
DX: Z53.9 Procedure and treatment not carried out, unspecified reason; C91.10 Chronic lymphocytic leukemia of B-cell type not having achieved remission; I25.10 Atherosclerotic heart disease of native coronary artery without angina pectoris; D64.89 Other specified anemias
CPT/HCPCS: 36415; 80053; 82784; 83615; 83883; 84155; 84165; 85025; 86334; 99214

== ENCOUNTER 2025-07-28 08:02 | Outpatient (CLI) | payer OTHER, SELFPAY ==
--- NOTE | 2025-07-28 09:30 | CTR_ITS ---
PROCEDURE INFORMATION: Exam: CT Chest With Contrast; Diagnostic Exam date and time: 07/28/2025 10:03 AM Age: 75 years old Clinical indication: Condition or disease; Other: Cll; Prior surgery; Surgery date: 6+ months; Surgery type: Neck , heart; Additional info: Post treatment followup, TECHNIQUE: Imaging protocol: Diagnostic computed tomography of the chest with contrast. Radiation optimization: All CT scans at this facility use at least one of these dose optimization techniques: automated exposure control; mA and/or kV adjustment per patient size (includes targeted exams where dose is matched to clinical indication); or iterative reconstruction. Contrast material: OMNI 350; Contrast volume: 100 ml; Contrast route: INTRAVENOUS (IV); COMPARISON: CT chest abdpel w/*[id number] 03/03/2025 1:36 AM RADIATION DOSE METRICS: Total DLP (mGy-cm): 1481.57 FINDINGS: Lungs: Unremarkable. No consolidation. No masses. Pleural spaces: Calcified pleural plaques in the bilateral chest. Heart: Unremarkable. No cardiomegaly. No pericardial effusion. Coronary arteries: Coronary calcifications are seen. Lymph nodes: Unremarkable. No enlarged lymph nodes. Vasculature: Mild calcified atherosclerotic changes are seen in the thoracic aorta. Bones/joints: Post sternotomy changes are seen. Soft tissues: Unremarkable. PROCEDURE INFORMATION: Exam: CT Abdomen And Pelvis With Contrast Exam date and time: 07/28/2025 10:03 AM Age: 75 years old Clinical indication: Condition or disease; Other: Cll; Prior surgery; Surgery date: 6+ months; Surgery type: Neck , heart; Additional info: Post treatment followup, TECHNIQUE: Imaging protocol: Computed tomography of the abdomen and pelvis with contrast. Radiation optimization: All CT scans at this facility use at least one of these dose optimization techniques: automated exposure control; mA and/or kV adjustment per patient size (includes targeted exams where dose is matched to clinical indication); or iterative reconstruction. Contrast material: OMNI 350; Contrast volume: 100 ml; Contrast route: INTRAVENOUS (IV); COMPARISON: CT chest abdpel w/*[id number] 03/03/2025 1:36 AM RADIATION DOSE METRICS: Total DLP (mGy-cm): 1481.57 FINDINGS: Liver: Stable right hepatic 9 mm hypodense lesion. Stable left hepatic 7 mm hypodense lesion. Gallbladder and biliary ducts: Normal. No calcified stones. No ductal dilation. Pancreas: Normal. No ductal dilation. Spleen: 14.5 cm enlarged spleen. Adrenal glands: Normal. No mass. Kidneys and ureters: Multiple right renal stones measuring up to 4 mm. Stomach and bowel: Sigmoid and descending colon diverticulosis. No small bowel loop dilatation. Appendix: Appendix is not visualized. Intraperitoneal space: Unremarkable. No free air. No significant fluid collection. Vasculature: Mild calcified atherosclerotic changes are seen throughout the abdominal aorta. Lymph nodes: Retroperitoneal lymph nodes are smaller in size. Largest measures 1 x 0.6 cm. Left external iliac chain lymph nodes are smaller. Largest measures 1.9 x 0.9 cm. Urinary bladder: Unremarkable as visualized. Reproductive: Unremarkable as visualized. Bones/joints: Moderate lumbar spine degenerative changes. Soft tissues: Unremarkable. CT/CT chest abdpel w/*[id number] IMPRESSION: 1. Overall positive response to medical treatment. 2. Calcified pleural plaques in the bilateral chest. Finding could be secondary to prior asbestos exposure. Clinical correlation is advised. 3. Coronary calcifications. IMPRESSION: 1. Overall positive response to medical treatment. 2. Multiple right renal stones measuring up to 4 mm. 3. Splenomegaly. Clinical correlation is advised. 4. Sigmoid and descending colon diverticulosis. 5. Moderate lumbar spine degenerative changes.
--- NOTE | 2025-07-28 09:30 | CTR_ITS ---
PROCEDURE INFORMATION: Exam: CT Neck With Contrast Exam date and time: 07/28/2025 10:08 AM Age: 75 years old Clinical indication: Condition or disease; Other: Cll; Prior surgery; Surgery date: 6+ months; Surgery type: Neck , heart TECHNIQUE: Imaging protocol: Computed tomography of the neck with contrast. Radiation optimization: All CT scans at this facility use at least one of these dose optimization techniques: automated exposure control; mA and/or kV adjustment per patient size (includes targeted exams where dose is matched to clinical indication); or iterative reconstruction. Contrast material: OMNI 350; Contrast volume: 100 ml; Contrast route: INTRAVENOUS (IV); COMPARISON: CT neck w con* [id number] 06/17/2025 3:47 PM RADIATION DOSE METRICS: Total DLP (mGy-cm): 244.86 FINDINGS: Salivary glands: Normal. Glands are normal in size. Pharynx: Unremarkable. No significant tonsillar enlargement. Larynx: Unremarkable. Epiglottis is normal. Thyroid: Normal. No enlarged or calcified nodules. Trachea: Visualized trachea is unremarkable. Lungs: Unremarkable as visualized. Lymph nodes: Bilateral jugulodigastric chain lymph nodes are demonstrated all of which are less than 1 cm and likely reactive. Since the prior exam, the previously described lymph nodes at the site of the radiopaque marker measured up to 1.9 cm. On today's exam, the node is smaller measuring up to 1 cm. This is best seen on series 6 and image 80. Right jugulodigastric lymph node is again demonstrated measuring 10 mm best seen on series 3 and image 56 stable compared with the prior exam. Scattered sub cm jugular chain lymph nodes are again demonstrated. There are stable level 1 lymph nodes. Bones/joints: There is anterior degenerative spondylolysis C5-T1 sternotomy wires are seen. Degenerative changes of the spinal column are seen. Soft tissues: Unremarkable. No significant soft tissue swelling. Vasculature: There is calcified plaque at the left carotid bulb. CT/CT neck w con* [id number] IMPRESSION: Interval in improvement in the previously described right level 2 lymph node. There is no longer platysmal inflammatory stranding around lymph node.
[2025-07-28] MEDS: iohexol 350 mg/mL 500 mL Btl (per mL) PO (09:40)
[2025-07-28] MEDS: iohexol 350 mg/mL 500 mL Btl (per mL) IV ×2 (10:18→10:19)
== END 2025-07-28 08:03 | disposition home or self-care (01) ==
LOC: RAD 08:04
PROVIDERS: PCP Family Medicine; Visit Provider Nurse Practitioner
DX: C91.10 Chronic lymphocytic leukemia of B-cell type not having achieved remission (principal); L02.11 Cutaneous abscess of neck; R16.1 Splenomegaly, not elsewhere classified; I70.0 Atherosclerosis of aorta; K57.31 Diverticulosis of large intestine without perforation or abscess with bleeding; K57.10 Diverticulosis of small intestine without perforation or abscess without bleeding
CPT/HCPCS: 70491; 71260; 74177

== ENCOUNTER 2025-08-24 10:14 | Oncology outpatient (recurring) (ONCR) | payer OTHER, SELFPAY ==
[2025-08-24 11:14] LABS: Hematocrit 36.0 % (37-53); Hemoglobin 10.80 g/dL (11.27-16.99); Mean Corpuscular HGB Conc 30.0 g/dL (30-55); Mean Corpuscular Hemoglobin 29.8 pg (27-33); Mean Corpuscular Volume 99.2 fl (82-101); Nucleated Red Blood Cells % 0 %; Platelet Count 201 10^3/cmm (157-399); Red Blood Count 3.63 10^6/uL (3.85-5.65)
[2025-08-24 11:20] LABS: Alanine Aminotransferase 8 U/L (0-41); Albumin Level 4.2 g/dL (3.5-5.2); Alkaline Phosphatase 153 U/L (40-130); Anion Gap 17.1 (5-19); Aspartate Amino Transferase 16 U/L (0-40); Blood Urea Nitrogen 18 mg/dL (8-23); Calcium 9.3 mg/dL (8.5-10.5); Carbon Dioxide 24 mmol/L (22-29); Chloride 103 mmol/L (98-107); Ferritin 156 ng/mL (30-400); Globulin 2.1 g/dL (1.3-4.6); Glucose 146 mg/dL (65-115); Osmolality Calculated 295 mOsm/kg (285-295); Potassium 4.1 mmol/L (3.5-5.1); Sodium 140 mmol/L (136-145); Total Protein 6.3 g/dL (6.6-8.7)
[2025-08-24 11:50] LABS: Slide Review Slide Review Perform
[2025-08-24 11:51] LABS: White Blood Count 73.63 10^3/uL (3.29-11.43)
[2025-08-25 10:46] LABS: Estmated Average Glucose 114; Hemoglobin A1C 5.6 % (4.0-6.0)
== END 2025-09-01 23:59 | disposition home or self-care (01) ==
PROVIDERS: Nurse Practitioner; PCP Family Medicine; Visit Provider Internal Medicine Medical Oncology
DX: L02.419 Cutaneous abscess of limb, unspecified (principal); Z79.899 Other long term (current) drug therapy; Z96.641 Presence of right artificial hip joint
CPT/HCPCS: 36415; 80053; 82728; 82746; 83036; 83615; 85025; 99214